=== PATIENT | female | born 2000 | race Caucasian/White ===

== ENCOUNTER 2024-11-02 23:00 | Emergency (ER) | payer OTHER ==
[~2024-11-02] VITALS: Ht 157.5 cm; Wt 62.0 kg
[2024-11-02 23:32] VITALS: O2SAT 100
[2024-11-03 00:32] LABS: BASOPHILS % 0.5 % (0.0-2.0); EOSINOPHILS % 1.0 % (0.0-5.0); HEMATOCRIT. 38.2 % (36.0-48.0); HEMOGLOBIN. 12.9 g/dL (12.0-16.0); LYMPHOCYTES % 39.5 % (20.0-50.0); MEAN PLATELET VOLUME 8.2 fl (7.4-10.4); MONOCYTES % 7.8 % (2.0-8.0); NEUTROPHILS % 51.2 % (40.0-76.0); PLATELET 285 x1000/uL (130-400); RED BLOOD CELL COUNT 4.36 mill/uL (4.2-5.4); RED CELL DISTRIBUTION WIDTH 12.0 % (11.6-14.6)
[2024-11-03 00:45] LABS: CREATININE 0.7 mg/dL (0.6-1.0); UREA NITROGEN BLOOD 11 mg/dL (9-23)
[2024-11-03] MEDS: IBUPROFEN 800MG TABLET PO ONE (01:39)
[2024-11-03 01:40] LABS: CLARITY URINE CLEAR (CLEAR); COLOR URINE YELLOW (YELLOW); GLUCOSE URINE NEGATIVE (NEGATIVE); KETONES URINE TRACE (NEGATIVE); LEUKOCYTE ESTERASE URINE NEGATIVE (NEGATIVE); NITRITE URINE NEGATIVE (NEGATIVE); OCCULT BLOOD URINE NEGATIVE (NEGATIVE); PH URINE 7.0 (4.5-8.0); PROTEIN URINE NEGATIVE (NEGATIVE); SPECIFIC GRAVITY URINE 1.038 (1.005-1.030); UROBILINOGEN URINE 1.0 E.U./dL (0.2-1.0)
[2024-11-03 01:40] LABS: HCG SCREEN NEGATIVE
[2024-11-03] MEDS: ACETAMINOPHEN 325MG TABLET PO ONE (01:40)
[2024-11-03] MEDS ORDERED: IBUP-2030 MT (01:53)
[2024-11-03 02:02] LABS: UCG KIT EXPIRATION DATE 1-3-27; UCG KIT LOT# 0000958452; UCG SCREEN NEGATIVE
[2024-11-03 02:05] VITALS: BP 126/78; PULSE 83; RESP 18; TEMP 36.8; O2SAT 98
== END 2024-11-03 02:05 | disposition home or self-care (01) ==
LOC: ER 23:00
DX: R10.2 Pelvic and perineal pain (principal); N93.9 Abnormal uterine and vaginal bleeding, unspecified; K58.9 Irritable bowel syndrome, unspecified
CPT/HCPCS: 36415; 76830; 76856; 80048; 81003; 81025; 84703; 85025; 86850; 86900; 99285